=== PATIENT | female | born 1955 | race American Indian/Alaskan Native ===

== ENCOUNTER 2016-06-30 11:18 | Emergency (ER) | payer OTHER ==
[2016-06-30 11:26] VITALS: BP 127/85; PULSE 89; RESP 18; TEMP 97.9; O2SAT 98
[2016-06-30] MEDS ORDERED: Erythromycin Base 500 mg Tab PO STA (11:37)
--- NOTE | 2016-06-30 11:39 | C.PDOC ---
History Of Present Illness 60 yr old female presents to the ER with complaints of left upper dental pain for the past 3 days. Patient denies fever, chills, chest pain, SOB, nausea, vomiting, neck pain, headache, weakness or numbness. Time Seen by Provider: 06/30/16 11:34 Chief Complaint (Nursing): Dental Pain History Per: Patient History/Exam Limitations: no limitations Onset/Duration Of Symptoms: Days (3) Current Symptoms Are (Timing): Still Present Past Medical History Reviewed: Historical Data, Nursing Documentation, Vital Signs Vital Signs: Last Vital Signs Temp 97.9 F 06/30/16 11:25 Pulse 89 06/30/16 11:25 Resp 18 06/30/16 11:25 BP 127/85 06/30/16 11:25 Pulse Ox 98 06/30/16 11:38 Family History: States: No Known Family Hx - Social History Hx Tobacco Use: No Hx Alcohol Use: No Hx Substance Use: No - Immunization History Hx Tetanus Toxoid Vaccination: Yes Hx Influenza Vaccination: Yes Hx Pneumococcal Vaccination: Yes Review Of Systems Except As Marked, All Systems Reviewed And Found Negative. Constitutional: Negative for: Fever, Chills ENT: Positive for: Other ((+) Left upper dental pain ) Cardiovascular: Negative for: Chest Pain Respiratory: Negative for: Shortness of Breath Gastrointestinal: Negative for: Nausea, Vomiting Musculoskeletal: Negative for: Neck Pain Neurological: Negative for: Weakness, Numbness, Headache Physical Exam - Physical Exam Appears: Well, Non-toxic, No Acute Distress Skin: Warm, Dry, No Rash Head: Atraumatic, Normacephalic Oral Mucosa: Moist Lips: Other (Left upper molars, missing teeth, dental filling. ) Gingiva: Normal Appearing, No Erythema, No Ulceration Throat: Normal, No Erythema, No Exudate, No Drooling Neck: Normal, Normal ROM, Supple Chest: Symmetrical, No Tenderness Cardiovascular: Rhythm Regular, No Murmur Respiratory: Normal Breath Sounds, No Rales, No Rhonchi, No Stridor, No Wheezing Extremity: Normal ROM, No Swelling Neurological/Psych: Oriented x3, Normal Speech, Normal Motor ED Course And Treatment O2 Sat by Pulse Oximetry: 98 Medical Decision Making Medical Decision Making: PLAN: * Erythromycin PO * Motrin PO NOTE: L upper molar toothache, ? infection NO appreciable facial swelling Start Erythro (PCN allergy) and motrin f/u with Dentist planned for today. Disposition Doctor Will See Patient In The: Office Counseled Patient/Family Regarding: Studies Performed, Diagnosis - Disposition Referrals: [facility] [Outside] [facility] [Outside] Disposition: HOME/ ROUTINE Disposition Time: 11:38 Condition: GOOD Additional Instructions: continue Erythromycin 500 mg 4x/day for 7 days Motrin 600 mg every 6 hours as needed Pepcid 20 mg @ night to prevent stomach irritation Follow-up with Dentistry promptly Prescriptions: Erythromycin Base [Erythromycin] 500 mg PO Q6H #27 tablet Instructions: Toothache (ED) - Clinical Impression Clinical Impression: Dental caries - Scribe Statement The provider has reviewed the documentation as recorded by the Jess Apple Provider Attestation: All medical record entries made by the Jess were at my direction and personally dictated by me. I have reviewed the chart and agree that the record accurately reflects my personal performance of the history, physical exam, medical decision making, and the department course for this patient. I have also personally directed, reviewed, and agree with the discharge instructions and disposition.
== END 2016-06-30 11:55 | disposition home or self-care (01) ==
LOC: C.ER 11:18
DX: K02.9 Dental caries, unspecified (principal)